=== PATIENT | male | born 1970 | race Two or more races ===

== ENCOUNTER 2024-03-10 15:25 | Emergency (ER) | payer OTHER ==
[~2024-03-10] VITALS: Ht 172.7 cm; Wt 90.7 kg
[2024-03-10] MEDS ORDERED: TRAMADOL HCL 50 MG TABLET PO STA (17:41)
[2024-03-10] MEDS ORDERED: MIDAZOLAM HCL/PF 5 MG/ML VIAL IV STA (19:07)
[2024-03-10] MEDS ORDERED: FLUMAZENIL 1MG/10ML VIAL IV STA (19:09)
[2024-03-10] MEDS ORDERED: FLUMAZENIL 0.5 MG/5 ML ML IV ONE (19:17)
[2024-03-10] MEDS ORDERED: KETOROLAC TROMETHAMINE 30 MG VIAL IM STA (21:08)
[2024-03-10] MEDS ORDERED: KETOROLAC TROMETHAMINE 30 MG VIAL ONE (21:16)
== END 2024-03-10 21:17 | disposition home or self-care (01) ==
LOC: ER 15:28
DX: S43.015A Anterior dislocation of left humerus, initial encounter (principal); W18.39XA Other fall on same level, initial encounter; Y93.89 Activity, other specified; Y92.89 Other specified places as the place of occurrence of the external cause; Y99.9 Unspecified external cause status

== ENCOUNTER 2025-01-03 14:10 | Outpatient (CLI) | payer OTHER | END 2025-01-03 14:19 | disposition home or self-care (01) | LOC: RAD 14:10 | DX: M25.511 Pain in right shoulder (principal) ==